=== PATIENT | male | born 1995 | race Caucasian/White ===

== ENCOUNTER 2020-08-31 10:25 | Emergency (ER) | payer BC ==
[2020-08-31] MEDS ORDERED: Ketorolac 60 MG/2 ML SDV IM ONE (11:15)
--- NOTE | 2020-08-31 11:16 | EDM.PDOC ---
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, has not had any fevers no shortness of breath Face/Facial Pain Score (Numeric/FACES): 5 - Related Data Allergies Allergy/AdvReac Type Severity Reaction Status Date / Time No Known Allergies Allergy Verified 08/31/20 10:52 Home Meds: Home Meds NK [No Known Home Meds] 08/31/20 [History] Past Medical History - Past Health History Medical/Surgical History: Denies Medical/Surgical History Social & Family History - Tobacco Use Tobacco Use Status *Q: Current Some Day Tobacco User Years of Tobacco use: 2 Packs/Tins Daily: 0.5 - Caffeine Use Caffeine Use: Reports: Energy Drinks - Recreational Drug Use Recreational Drug Use: No ED ROS GENERAL - Review of Systems Review Of Systems: See Below Constitutional: Reports: Other (Body aches) HEENT: Reports: No Symptoms Respiratory: Reports: No Symptoms Cardiovascular: Reports: No Symptoms GI/Abdominal: Reports: No Symptoms Neurological: Reports: Headache ED EXAM, GENERAL - Physical Exam Exam: See Below Exam Limited By: No Limitations General Appearance: Alert, WD/WN, No Apparent Distress Eye Exam: Bilateral Eye: EOMI, Normal Inspection, PERRL Ears: Normal External Exam, Normal Canal, Hearing Grossly Normal, Normal TMs Nose: Normal Inspection, Normal Mucosa, No Blood Throat/Mouth: Normal Inspection Head: Atraumatic, Normocephalic Neck: Normal Inspection, Supple, Non-Tender, Full Range of Motion Respiratory/Chest: No Respiratory Distress, Lungs Clear, Normal Breath Sounds, No Accessory Muscle Use, Chest Non-Tender Cardiovascular: Regular Rate, Rhythm, No Murmur GI/Abdominal: Soft, Non-Tender Neurological: Alert, Oriented Course - Vital Signs Last Recorded V/S: Last Vital Signs Temp 98.8 F 08/31/20 10:53 Pulse 104 H 08/31/20 10:53 Resp 16 08/31/20 10:53 BP 124/81 08/31/20 10:53 Pulse Ox 95 08/31/20 10:53 - Orders/Labs/Meds Orders: Active Orders 24 hr Category Date Time Status Isolation [COMM] Stat Oth 08/31/20 11:13 Ordered Labs: Laboratory Tests 08/31/20 08/31/20 08/31/20 Range/Units 11:14 11:32 11:32 WBC 2.2 L (4.5-11.0) K/uL RBC 5.67 (4.30-5.90) M/uL Hgb 15.5 H (12.0-15.0) g/dL Hct 46.8 (40.0-54.0) % MCV 83 (80-98) fL MCH 27 (27-31) pg MCHC 33 (32-36) % Plt Count 176 (150-400) K/uL Neut % (Auto) 36 (36-66) % Lymph % (Auto) 40 (24-44) % [place] % (Auto) 22 H (2-6) % Eos % (Auto) 1 L (2-4) % Baso % (Auto) 1 (0-1) % Sodium 139 L (140-148) mmol/L Potassium 4.3 (3.6-5.2) mmol/L Chloride 103 (100-108) mmol/L Carbon Dioxide 29 (21-32) mmol/L Anion Gap 11.3 (5.0-14.0) mmol/L BUN 12 (7-18) mg/dL Creatinine 1.0 (0.8-1.3) mg/dL Est Cr Clr Drug Dosing 130.95 mL/min Estimated GFR (MDRD) > 60 (>60) Glucose 92 (74-106) mg/dL Lactic Acid (0.4-2.0) mmol/L Calcium 9.1 (8.5-10.1) mg/dL Total Bilirubin 0.5 (0.2-1.0) mg/dL Direct Bilirubin 0.15 (0.0-0.2) mg/dL Indirect Bilirubin 0.35 AST 18 (15-37) U/L ALT 29 (12-78) U/L Alkaline Phosphatase 80 (46-116) U/L C-Reactive Protein 2.69 H (0.0-0.3) mg/dL Total Protein 6.8 (6.4-8.2) g/dL Albumin 3.8 (3.4-5.0) g/dL Globulin 3.0 (2.3-3.5) g/dL Albumin/Globulin Ratio 1.3 (1.2-2.2) Influenza Type A RNA Negative (NEGATIVE) Influenza Type B RNA Negative (NEGATIVE) RSV Rapid Negative (NEGATIVE) SARS-CoV-2 RNA (LACI) Positive H (NEGATIVE) 08/31/20 Range/Units 11:32 WBC (4.5-11.0) K/uL RBC (4.30-5.90) M/uL Hgb (12.0-15.0) g/dL Hct (40.0-54.0) % MCV (80-98) fL MCH (27-31) pg MCHC (32-36) % Plt Count (150-400) K/uL Neut % (Auto) (36-66) % Lymph % (Auto) (24-44) % [place] % (Auto) (2-6) % Eos % (Auto) (2-4) % Baso % (Auto) (0-1) % Sodium (140-148) mmol/L Potassium (3.6-5.2) mmol/L Chloride (100-108) mmol/L Carbon Dioxide (21-32) mmol/L Anion Gap (5.0-14.0) mmol/L BUN (7-18) mg/dL Creatinine (0.8-1.3) mg/dL Est Cr Clr Drug Dosing mL/min Estimated GFR (MDRD) (>60) Glucose (74-106) mg/dL Lactic Acid 0.6 (0.4-2.0) mmol/L Calcium (8.5-10.1) mg/dL Total Bilirubin (0.2-1.0) mg/dL Direct Bilirubin (0.0-0.2) mg/dL Indirect Bilirubin AST (15-37) U/L ALT (12-78) U/L Alkaline Phosphatase (46-116) U/L C-Reactive Protein (0.0-0.3) mg/dL Total Protein (6.4-8.2) g/dL Albumin (3.4-5.0) g/dL Globulin (2.3-3.5) g/dL Albumin/Globulin Ratio (1.2-2.2) Influenza Type A RNA (NEGATIVE) Influenza Type B RNA (NEGATIVE) RSV Rapid (NEGATIVE) SARS-CoV-2 RNA (LACI) (NEGATIVE) Meds: Medications Discontinued Medications Generic Name Dose Route Start Last Admin Trade Name Roryq PRN Reason Stop Dose Admin Ketorolac Tromethamine 60 mg 08/31/20 11:15 08/31/20 11:33 Toradol IM 08/31/20 11:16 60 mg ONETIME ONE Administration Departure - Departure Time of Disposition: 12:28 Disposition: Home, Self-Care 01 Condition: Fair Clinical Impression: COVID-19 - Discharge Information Instructions: COVID-19 Frequently Asked Questions, COVID-19: How to Protect Yourself and Others - CDC, Prevent the Spread of COVID-19 if You Are Sick - CDC, COVID-19 Referrals: PCP,None [Primary Care Provider] - Forms: ED Department Discharge Additional Instructions: Continue use Tylenol Motrin as needed for pain control, recommend self quarantine for the next 10 days or per your employer's recommendations, please call return to the emergency department worsening of symptoms Sepsis Event Note (ED) - Evaluation Sepsis Screening Result: No Definite Risk - Focused Exam Vital Signs: Vital Signs Temp Pulse Resp BP Pulse Ox 08/31/20 10:53 98.8 F 104 H 16 124/81 95 - My Orders Last 24 Hours: My Active Orders 08/31/20 11:13 Isolation [COMM] Stat - Assessment/Plan Last 24 Hours: My Active Orders 08/31/20 11:13 Isolation [COMM] Stat Plan: Assessment Acuity = acute Site and laterality = viral syndrome Etiology = COVID-19 Manifestations = body aches Location of injury = Home Lab values = CBC reveals a WBC at 2.2 consistent leukopenia CRP elevated 2.69 remainder lab work is unremarkable positive Covid test negative influenza and RSV Plan Has some improvement with Toradol provided for the migraine and body aches he is going to do self quarantine and inform his employer of his positive test This note was dictated using dakick voice recognition software please call with any questions on syntax or grammar.
[2020-08-31 12:11] LABS: CORONAVIRUS COVID-19 NAA POSITIVE (NEGATIVE)
== END 2020-08-31 12:40 | disposition home or self-care (01) ==
LOC: JP.ED 10:25
DX: U07.1 COVID-19 (principal); F17.210 Nicotine dependence, cigarettes, uncomplicated
CPT/HCPCS: 0241U; 36415; 80048; 80076; 83605; 85025; 86140; 96372; 99283; J1885